=== PATIENT | female | born 1975 | race Caucasian/White ===

== ENCOUNTER 2019-07-17 19:19 | Emergency (ER) | payer MEDICAID ==
[~2019-07-17] VITALS: Ht 172.7 cm; Wt 63.5 kg
--- NOTE | 2019-07-17 19:21 | NUR ---
ED Nurse Note: Patient brought in by ambulance, RA 29 with complaints of taking unknown amounts of meclizine unintentionally. patient reports feeling dizzy.
[2019-07-17 19:22] VITALS: BP 130/91
[2019-07-17] MEDS ORDERED: Activated Charcoal 50gm/240ml Btl ORAL ONE (19:30)
--- NOTE | 2019-07-17 19:51 | NUR ---
ED Nurse Note: patient tolerated medication administration well. Will continue to monitor response from activated charcoal.
[2019-07-17 19:58] LABS: BASOPHILS % (AUTO) 1.4 % (0.0-2.0); EOSINOPHILS % (AUTO) 1.9 % (0.0-3.0); HEMATOCRIT 43.4 % (37.0-47.0); HEMOGLOBIN 13.3 G/DL (12.0-16.0); LYMPHOCYTES % (AUTO) 39.3 % (20.0-45.0); MEAN CORPUSCULAR VOLUME 97 FL (80-99); MONOCYTES % (AUTO) 5.1 % (1.0-10.0); NEUTROPHILS % (AUTO) 52.4 % (45.0-75.0); PLATELET COUNT 384 K/UL (150-450); RED BLOOD COUNT 4.49 M/UL (4.20-5.40); RED CELL DISTRIBUTION WIDTH 12.1 % (11.6-14.8); WHITE BLOOD COUNT 6.9 K/UL (4.8-10.8)
[2019-07-17 20:07] LABS: ANION GAP 14 mmol/L (5-15); BLOOD UREA NITROGEN 10 mg/dL (7-18); CALCIUM 8.4 MG/DL (8.5-10.1); CARBON DIOXIDE 23 MMOL/L (21-32); CHLORIDE 105 MMOL/L (98-107); CREATININE 0.9 MG/DL (0.55-1.30); POTASSIUM 3.5 MMOL/L (3.5-5.1); SODIUM 142 MMOL/L (136-145)
--- NOTE | 2019-07-17 20:20 | NUR ---
ED Nurse Note: Tanneralvin (father) # [phone]
[2019-07-17 20:27] LABS: ALANINE AMINOTRANSFERASE 31 U/L (12-78); ALBUMIN 3.7 G/DL (3.4-5.0); ALKALINE PHOSPHATASE 31 U/L (46-116); ASPARTATE AMINO TRANSFERASE 35 U/L (15-37); BILIRUBIN,TOTAL 0.3 MG/DL (0.2-1.0)
--- NOTE | 2019-07-17 20:35 | NUR ---
ED Nurse Note: Patietn able to ambulate to restroom with minimal assist. Patient provided urine specimen and it was taken down to lab. Will continue to monitor cardiac status and lab results.
[2019-07-17 20:53] LABS: APPEARANCE,URINE CLEAR; BILIRUBIN, URINE NEGATIVE (NEGATIVE); COLOR,URINE PALE YELLOW; GLUCOSE, URINE (UA) NEGATIVE (NEGATIVE); KETONES,URINE NEGATIVE (NEGATIVE); LEUKOCYTE ESTERASE ,URINE NEGATIVE (NEGATIVE); NITRITE,URINE NEGATIVE (NEGATIVE); PH,URINE 6 (4.5-8.0); PROTEIN,URINE NEGATIVE (NEGATIVE); UROBILINOGEN,URINE NORMAL MG/DL (0.0-1.0)
--- NOTE | 2019-07-17 22:12 | NUR ---
ED Nurse Note: Patient repositioned. Patient is resting comfortably with no s/s of acute distress. vital signs within normal range.
--- NOTE | 2019-07-17 22:29 | Emergency Room Report ---
History of Present Illness General Chief Complaint: Overdose Source: Patient Present Illness HPI 44-year-old female presents to ED for overdose. Brought in by EMS from home. States that she accidentally took meclizine. About 1 hour ago. Does not know how many pills she took. Was not trying to hurt herself. Medication was prescribed to her father but she also has vertigo. Denies SI or HI. Denies hearing voices. Admits to alcohol use. No other aggravating relieving factors. Denies any other associated symptoms Allergies: Coded Allergies: No Known Allergies (Unverified , 07/17/19) COVID-19 Screening Contact w/high risk pt: No Recent Travel to affected area: No Experienced COVID-19 symptoms?: No COVID-19 Testing performed MEDICAID PLAN COMPLIANCE DIRECTOR: No Patient History Past Medical History: psych hx Past Surgical History: none Pertinent Family History: none Social History: Reports: alcohol use; Denies: smoking, drug use Last Menstrual Period: UNK Now: No Immunizations: UTD Reviewed Nursing Documentation: PMH: Agreed; PSxH: Agreed Nursing Documentation-PMH Hx Hypertension: Yes Review of Systems All Other Systems: negative except mentioned in HPI Physical Exam Vital Signs Date Time Temp Pulse Resp B/P (MAP) Pulse Ox O2 Delivery O2 Flow Rate FiO2 07/17/19 19:16 97.9 78 12 151/96 (114) 98 Room Air Sp02 EP Interpretation: reviewed, normal General Appearance: no apparent distress, alert, GCS 15, non-toxic Head: normocephalic, atraumatic Eyes: bilateral eye normal inspection, bilateral eye PERRL ENT: hearing grossly normal, normal pharynx, no angioedema, normal voice Neck: full range of motion, supple/symm/no masses Respiratory: chest non-tender, lungs clear, normal breath sounds, speaking full sentences Cardiovascular #1: regular rate, rhythm, no edema Cardiovascular #2: 2+ carotid (R), 2+ carotid (L), 2+ radial (R), 2+ radial (L) , 2+ dorsalis pedis (R), 2+ dorsalis pedis (L) Gastrointestinal: normal bowel sounds, non tender, soft, non-distended, no guarding, no rebound Rectal: deferred Genitourinary: normal inspection, no CVA tenderness Musculoskeletal: back normal, normal range of motion, gait/station normal, non- tender Neurologic: alert, motor strength/tone normal, oriented x3, sensory intact, responsive, speech normal Psychiatric: judgement/insight normal, memory normal, mood/affect normal, no suicidal/homicidal ideation Reflexes: 3+ bicep (R), 3+ bicep (L), 3+ tricep (R), 3+ tricep (L), 3+ knee (R) , 3+ knee (L) Lymphatic: no adenopathy Medical Decision Making Diagnostic Impression: Primary Impression: Alcohol intoxication Qualified Codes: F10.929 - Alcohol use, unspecified with intoxication, unspecified Additional Impression: Drug overdose Qualified Codes: T50.901A - Poisoning by unspecified drugs, medicaments and biological substances, accidental (unintentional), initial encounter ER Course Hospital Course 44 yo F presents with dizziness, after taking meclizine. no SI/HI. Differential diagnoses include: Psychosis, EtOH, drug abuse Clinical course patient placed on stretcher. On engine monitor. After initial history and physical ordered labs, IV fluids, EKG, charcoal Labs reviewed-electrolytes okay, no leukocytosis, hemoglobin/hematocrit stable, +ETOH EKG - NSR no acute ischemci changes interpreted by me discussed case with poison control. Recommend to observe for QT prolongation and QRS widening. Recommended charcoal. Recommended observation. Patient observed on engine monitor. Vitals stable. [employer] at bedside to evaluate patient. They do not believe patient requires emergent psychiatric evaluation. I agree with their assessment. I believe this was an accidental ingestion secondary to alcohol use. Patient now alert oriented x3. Ambulating without difficulty. Observed for designated period of time. I believe patient can be safely discharged to home. Safe for discharge for close outpatient follow-up. I will provide referrals i. I feel this is a highly complex case requiring extensive working including EKG/Rhythm strip, Xray/CT/US, Blood/urine lab work, repeat exams while in ED, and administration of strong opiates/narcotics for pain control, admission to hospital or close patient follow up. Diagnosis - alcohol intoxication, drug overdose Stable and discharged to home. Followup with PMD. Return to ED if symptoms recur or worsen Labs Test 07/17/19 19:36 07/17/19 20:35 White Blood Count 6.9 K/UL (4.8-10.8) Red Blood Count 4.49 M/UL (4.20-5.40) Hemoglobin 13.3 G/DL (12.0-16.0) Hematocrit 43.4 % (37.0-47.0) Mean Corpuscular Volume 97 FL (80-99) Mean Corpuscular Hemoglobin 29.6 PG (27.0-31.0) Mean Corpuscular Hemoglobin Concent 30.6 G/DL (32.0-36.0) Red Cell Distribution Width 12.1 % (11.6-14.8) Platelet Count 384 K/UL (150-450) Mean Platelet Volume 7.1 FL (6.5-10.1) Neutrophils (%) (Auto) 52.4 % (45.0-75.0) Lymphocytes (%) (Auto) 39.3 % (20.0-45.0) Monocytes (%) (Auto) 5.1 % (1.0-10.0) Eosinophils (%) (Auto) 1.9 % (0.0-3.0) Basophils (%) (Auto) 1.4 % (0.0-2.0) Sodium Level 142 MMOL/L (136-145) Potassium Level 3.5 MMOL/L (3.5-5.1) Chloride Level 105 MMOL/L (98-107) Carbon Dioxide Level 23 MMOL/L (21-32) Anion Gap 14 mmol/L (5-15) Blood Urea Nitrogen 10 mg/dL (7-18) Creatinine 0.9 MG/DL (0.55-1.30) Estimat Glomerular Filtration Rate > 60 mL/min (>60) Glucose Level 121 MG/DL (74-106) Calcium Level 8.4 MG/DL (8.5-10.1) Total Bilirubin 0.3 MG/DL (0.2-1.0) Aspartate Amino Transf (AST/SGOT) 35 U/L (15-37) Alanine Aminotransferase (ALT/SGPT) 31 U/L (12-78) Alkaline Phosphatase 31 U/L (46-116) Total Protein 7.3 G/DL (6.4-8.2) Albumin 3.7 G/DL (3.4-5.0) Globulin 3.6 g/dL Albumin/Globulin Ratio 1.0 (1.0-2.7) Salicylates Level 3.8 ug/mL (2.8-20) Acetaminophen Level < 2 MCG/ML (10-30) Serum Alcohol 242 mg/dL Urine Color Pale yellow Urine Appearance Clear Urine pH 6 (4.5-8.0) Urine Specific [place] 1.010 (1.005-1.035) Urine Protein Negative (NEGATIVE) Urine Glucose (UA) Negative (NEGATIVE) Urine Ketones Negative (NEGATIVE) Urine Blood Negative (NEGATIVE) Urine Nitrite Negative (NEGATIVE) Urine Bilirubin Negative (NEGATIVE) Urine Urobilinogen Normal MG/DL (0.0-1.0) Urine Leukocyte Esterase Negative (NEGATIVE) Urine HCG, Qualitative Negative (NEGATIVE) Urine Opiates Screen Negative (NEGATIVE) Urine Barbiturates Screen Negative (NEGATIVE) Phencyclidine (PCP) Screen Negative (NEGATIVE) Urine Amphetamines Screen Negative (NEGATIVE) Urine Benzodiazepines Screen Negative (NEGATIVE) Urine Cocaine Screen Negative (NEGATIVE) Urine Marijuana (THC) Screen Negative (NEGATIVE) EKG Diagnostic Results Rate: normal Rhythm: NSR ST Segments: no acute changes ASA given to the pt in ED: No Rhythm Strip Diag. Results EP Interpretation: yes Rhythm: NSR, no PVC's, no ectopy Last Vital Signs Date Time Temp Pulse Resp B/P (MAP) Pulse Ox O2 Delivery O2 Flow Rate FiO2 07/17/19 19:22 78 12 Room Air 07/17/19 19:22 97.7 130/91 96 Status: improved Disposition: HOME, SELF-CARE Condition: Stable [facility] Patient Instructions: Basics of Medicine Management Chava Ruiz MD Jul 17, 2019 22:29
[2019-07-17 22:38] VITALS: BP 128/88
[2019-07-17 22:40] VITALS: BP 128/88
--- NOTE | 2019-07-17 22:40 | NUR ---
ER DISCHARGE NOTE: Patient is cleared to be discharged per ERMD, pt is aox4, on room air, with stable vital signs. pt was given dc instructions, pt was able to verbalize understanding, pt id band and iv site removed without complications. pt is able to ambulate with steady gait. pt took all belongings.
== END 2019-07-17 22:40 | disposition home or self-care (01) ==
LOC: EDBD 19:19 → EMR 20:18
DX: F10.129 Alcohol abuse with intoxication, unspecified (principal); T50.901A Poisoning by unspecified drugs, medicaments and biological substances, accidental (unintentional), initial encounter; I10 Essential (primary) hypertension; X58.XXXA Exposure to other specified factors, initial encounter; Y92.9 Unspecified place or not applicable
CPT/HCPCS: 36415; 80053; 80307; 81003; 81025; 85025; 93005; 96361; 96374; G0480; G0481; J2405; J7030; Z7502; 99284

== ENCOUNTER 2020-03-27 17:58 | Emergency (ER) | payer MEDICAID ==
[~2020-03-27] VITALS: Ht 167.6 cm; Wt 65.8 kg
[2020-03-27 18:21] VITALS: BP 128/89
--- NOTE | 2020-03-27 18:23 | Emergency Room Report ---
History of Present Illness General Source: Patient, EMS (Dong Watts MD) Present Illness HPI Patient brought by EMS. She ingested a handful of Klonopin. Paramedics counted that it could have been up to 15 tables - unknown dose. No reported vomiting. Patient states she had felt anxious "and didn't think they would be strong because they had ". She states she has had problems with depression and feels worthless at this time. She states she "just wanted to end it all". She had been drinking before taking the medicine. She took them "a while" before paramedics were called. Patient was seen here July of last year. At that time she presented with alcohol intoxication and an overdose of meclizine. At that time was assessed that the overdose was accidental due to the alcohol ingestion. She was on [address] [facility] and transferred to [facility] rehab facility in January. She tested negative for COVID 2 weeks ago. Denies exposure to COVID + contacts recently. Denies COVID symptoms. H/O migraines. Denies headache at this time. Last menses normal. H/O HTN. (Dong Watts MD) Allergies: Coded Allergies: SULFA (SULFONAMIDE ANTIBIOTICS) (Verified Allergy, Unknown, 03/27/20) COVID-19 Screening Contact w/high risk pt: No Recent Travel to affected area: No Experienced COVID-19 symptoms?: No (Dong Watts MD) Patient History Past Medical History: see triage record, old chart reviewed Social History: Reports: smoking, alcohol use Social History Narrative From home lives with parents and has daughter 50% of time Reviewed Nursing Documentation: PMH: Agreed; PSxH: Agreed (Dong Watts MD) Nursing Documentation-PMH Hx Hypertension: Yes (Dong Watts MD) Review of Systems All Other Systems: negative except mentioned in HPI (Dong Watts MD) Physical Exam Vital Signs Date Time Temp Pulse Resp B/P (MAP) Pulse Ox O2 Delivery O2 Flow Rate FiO2 03/27/20 18:00 97.5 86 17 162/88 (112) 99 Room Air 03/27/20 18:21 97 Sp02 EP Interpretation: reviewed, normal General Appearance: well appearing, no apparent distress, GCS 15, non-toxic, other Head: normocephalic Eyes: bilateral eye PERRL, bilateral eye EOMI, bilateral eye Scleral Injection ENT: other - Wearing a mask Neck: supple Respiratory: normal inspection, lungs clear Cardiovascular #1: regular rate, rhythm Cardiovascular #2: 2+ radial (R) Gastrointestinal: normal inspection, non-distended Musculoskeletal: back normal, normal range of motion Neurologic: oriented x3, speech normal, other - Sleepy Suicide Risk Assessment: Suicidal Ideation: Yes Had intent to initiate attempt: Yes Pt's plan for suicide attempt: Yes Has means to complete attempt: Yes Skin: no rash, warm/dry (Dong Watts MD) Medical Decision Making Diagnostic Impression: Primary Impression: Drug overdose Qualified Codes: T50.902A - Poisoning by unspecified drugs, medicaments and biological substances, intentional self-harm, initial encounter Additional Impressions: Suicide gesture Qualified Codes: X83.8XXA - Intentional self-harm by other specified means, initial encounter Headache Qualified Codes: R51.9 - Headache, unspecified Anxiety ER Course Patient presents with admitted overdose of benzodiazepine with alcohol. Differential includes polypharmacy overdose, alcohol intoxication, suicidal gesture amongst others. Due to timing of ingestion, charcoal and lavage not indicated. Evaluation with EKG and labs. Treatment with IV hydration. Patient placed on registered nurse cardiac telemetry. Repeat exams indicated. Due to several presentations for similar events and the quantity allegedly ingested, self- threat taken seriously. Patient is voluntary. Due to need for psychiatric evaluation, placed on medical hold. Poison control contacted. Suggested continued observation at least 4 hours and supportive care. Recommend against Romazicon. RN notes state patient denied suicide intent. EKG without injury. Labs remarkable for elevated blood alcohol (184). Patient mentation not deteriorating. Resting and not lethargic, easily roused. C/O headache - Reglan, Benadryl and toradol given. HASTINGS resolved. 2149 - c/o abdominal pain. Points just below belly button. Abd soft. Tylenol ordered. [address] Lindsay. Placed on Medical Hold. Laboratory Tests Test 03/27/20 18:04 03/27/20 19:44 03/27/20 22:01 White Blood Count 4.0 K/UL (4.8-10.8) L Red Blood Count 4.15 M/UL (4.20-5.40) L Hemoglobin 12.2 G/DL (12.0-16.0) Hematocrit 38.2 % (37.0-47.0) Mean Corpuscular Volume 92 FL (80-99) Mean Corpuscular Hemoglobin 29.5 PG (27.0-31.0) Mean Corpuscular Hemoglobin Concent 32.1 G/DL (32.0-36.0) Red Cell Distribution Width 12.9 % (11.6-14.8) Platelet Count 331 K/UL (150-450) Mean Platelet Volume 5.9 FL (6.5-10.1) L Neutrophils (%) (Auto) 39.7 % (45.0-75.0) L Lymphocytes (%) (Auto) 49.1 % (20.0-45.0) H Monocytes (%) (Auto) 7.6 % (1.0-10.0) Eosinophils (%) (Auto) 1.9 % (0.0-3.0) Basophils (%) (Auto) 1.7 % (0.0-2.0) Sodium Level 144 MMOL/L (136-145) Potassium Level 3.7 MMOL/L (3.5-5.1) Chloride Level 106 MMOL/L (98-107) Carbon Dioxide Level 26 MMOL/L (21-32) Anion Gap 12 mmol/L (5-15) Blood Urea Nitrogen 13 mg/dL (7-18) Creatinine 0.8 MG/DL (0.55-1.30) Estimated Glomerular Filtration Rate > 60 mL/min (>60) Glucose Level 103 MG/DL (74-106) Calcium Level 8.3 MG/DL (8.5-10.1) L Total Bilirubin 0.3 MG/DL (0.2-1.0) Aspartate Amino Transferase (AST) 22 U/L (15-37) Alanine Aminotransferase (ALT) 17 U/L (12-78) Alkaline Phosphatase 46 U/L (46-116) Total Creatine Kinase 61 U/L (26-308) Total Protein 7.0 G/DL (6.4-8.2) Albumin 3.4 G/DL (3.4-5.0) Globulin 3.6 g/dL Albumin/Globulin Ratio 0.9 (1.0-2.7) L Salicylates Level 2.7 ug/mL (2.8-20) L Acetaminophen Level < 2 MCG/ML (10-30) L Serum Alcohol 184 mg/dL 27 mg/dL Urine HCG, Qualitative Negative (NEGATIVE) Urine Opiates Screen Negative (NEGATIVE) Urine Barbiturates Screen Negative (NEGATIVE) Phencyclidine (PCP) Screen Negative (NEGATIVE) Urine Amphetamines Screen Negative (NEGATIVE) Urine Benzodiazepines Screen Negative (NEGATIVE) Urine Cocaine Screen Negative (NEGATIVE) Urine Marijuana (THC) Screen Negative (NEGATIVE) (Dong Watts MD) ER Course Assumed care of the patient from the previous provider at approximately 2300. Please refer to initial note for full history and physical exam. Briefly, 45-year-old female presented to the ER after taking multiple Klonopin. Placed on medical hold by previous physician. Awaiting psychiatric evaluation in the morning. (Noah Lindsay MD) ER Course Patient endorsed to me by previous physician. Patient was seen by psychiatrist. Patient does not appear to be in any acute danger to herself at this time. Patient was noted to have adequate mental status. She denies any suicidal thoughts when discussing with psychiatrist. Patient will be discharged home. She is to follow-up with her psychiatrist.Patient was picked up by her father. This medical record is generated with [employer] enrober software. There may be some enrober discrepancies related to use of this software (Jonathan Kidd MD) EKG Diagnostic Results Rate: normal Rhythm: NSR ST Segments: no acute changes (Dong Watts MD) Rhythm Strip Diag. Results EP Interpretation: yes Rhythm: NSR, no PVC's, no ectopy (Dong Watts MD) Last Vital Signs Date Time Temp Pulse Resp B/P (MAP) Pulse Ox O2 Delivery O2 Flow Rate FiO2 03/27/20 22:05 97.8 82 19 123/85 100 Room Air 97 Status: improved (Dong Watts MD) Status: improved (Jonathan Kidd MD) Disposition: HOME, SELF-CARE Condition: Stable Dong Watts MD Mar 27, 2020 18:22 Noah Lindsay MD Mar 28, 2020 05:18 Jonathan Kidd MD Mar 28, 2020 12:12
--- NOTE | 2020-03-27 18:28 | NUR ---
ED Nurse Note: pt arrived from home. father called 911. pt took 15-20 clonazepam. initially saying she did not try and hurt herself, just feeling anxious and trying to feel better. pt states high stress levels at home with family dynamic issues. pt states etoh abuse, currently drinking, unable to remember last time she was sober for 2 weeks. pt states she drinks every day. pt was seeing therapist, has not seen in the past few months. pt then becoming tearful and admitting "I feel hopeless & that I am a failure to god. I know I have potential but I feel like I am wasting it. I just didnt see and end." pt A&Ox4, coopertaive but tearful. pt oriented, slight slurring of words. pt states whole family had covid, she did not get it, had 4 negative tests, last one 2 weeks ago. no symptoms per pt pt hx: migraine, HTN, OCD, alcoholism per pt- she was placed on 5150 at [facility] and transferred to rehab center for depression/anxiety and alcohol withdrawal.
[2020-03-27 18:29] LABS: BASOPHILS % (AUTO) 1.7 % (0.0-2.0); EOSINOPHILS % (AUTO) 1.9 % (0.0-3.0); HEMATOCRIT 38.2 % (37.0-47.0); HEMOGLOBIN 12.2 G/DL (12.0-16.0); LYMPHOCYTES % (AUTO) 49.1 % (20.0-45.0); MEAN CORPUSCULAR VOLUME 92 FL (80-99); MONOCYTES % (AUTO) 7.6 % (1.0-10.0); NEUTROPHILS % (AUTO) 39.7 % (45.0-75.0); PLATELET COUNT 331 K/UL (150-450); RED BLOOD COUNT 4.15 M/UL (4.20-5.40); RED CELL DISTRIBUTION WIDTH 12.9 % (11.6-14.8)
[2020-03-27 18:34] LABS: ANION GAP 12 mmol/L (5-15); BLOOD UREA NITROGEN 13 mg/dL (7-18); CALCIUM 8.3 MG/DL (8.5-10.1); CARBON DIOXIDE 26 MMOL/L (21-32); CHLORIDE 106 MMOL/L (98-107); CREATININE 0.8 MG/DL (0.55-1.30); POTASSIUM 3.7 MMOL/L (3.5-5.1); SODIUM 144 MMOL/L (136-145)
[2020-03-27 18:39] LABS: ALANINE AMINOTRANSFERASE 17 U/L (12-78); ALBUMIN 3.4 G/DL (3.4-5.0); ALBUMIN/GLOBULIN RATIO 0.9 (1.0-2.7); ALKALINE PHOSPHATASE 46 U/L (46-116); ASPARTATE AMINO TRANSFERASE 22 U/L (15-37); BILIRUBIN,TOTAL 0.3 MG/DL (0.2-1.0); CREATINE KINASE 61 U/L (26-308)
--- NOTE | 2020-03-27 18:51 | NUR ---
ED Nurse Note: called poision control at 1850. recommendations: watch for respiratory depression/TOOLS DEVELOPER depression due to combination with alcohol. observe for 4 hours in ER. order CBC, CMP, etoh/acetaminophen/salicylate levels. pt is A&Ox4 on continuous monitor, likely will be able to be cleared after 4 hours of observation. MD Watts notified. recommended labs are ordered. pt on continuous cardiac/O2 monitor.
--- NOTE | 2020-03-27 18:56 | NUR ---
ED Nurse Note: called poision control at 1850. Spoke with Tracy. recommendations: watch for respiratory depression/PIECER depression due to combination with alcohol. observe for 4 hours in ER. order CBC, CMP, etoh/acetaminophen/salicylate levels. pt is A&Ox4 on continuous monitor, likely will be able to be cleared after 4 hours of observation. MD Watts notified. recommended labs are ordered. pt on continuous cardiac/O2 monitor.
[2020-03-27] MEDS ORDERED: Ketorolac 30mg Inj IV ONE (19:00)
[2020-03-27] MEDS ORDERED: Metoclopramide 10mg/2ml Inj IVP ONE (19:00)
[2020-03-27] MEDS ORDERED: DiphenhydrAMINE 50mg/ml Inj IVP ONE (19:00)
--- NOTE | 2020-03-27 19:09 | NUR ---
ED Nurse Note: Recived care from Reynaldo ART. Pt is resting comfortably breathing is even and unlabored, vtals are stable on RA as docuemented. Monitor is on per tele monitor pt SR. Pt is axox4, co of head pain per pt it feels like a migraine. IV meds given. Clarified diphenhydramine order, per ER MD ok to give.
[2020-03-27 19:10] VITALS: BP 118/83
--- NOTE | 2020-03-27 19:52 | NUR ---
ED Nurse Note: Urine sent to lab
--- NOTE | 2020-03-27 20:46 | NUR ---
ED Nurse Note: Spoke with father [facility] [phone]
[2020-03-27 21:05] VITALS: BP 123/69
--- NOTE | 2020-03-27 22:00 | NUR ---
ED Nurse Note: Pt is co abd pain, ER assesed pt at [facility]. Pt states that it is LLQ and sharp. LBM 2 days ago.
[2020-03-27 22:05] VITALS: BP 123/85
--- NOTE | 2020-03-27 23:00 | NUR ---
[facility] called back, all updated information given, they are closing the case.
--- NOTE | 2020-03-27 23:30 | NUR ---
ED Nurse Note: Pt has a large episode of fecal incontinence. States that she no longer has abdominal pain.
[2020-03-28 01:45] VITALS: BP 113/72
--- NOTE | 2020-03-28 01:46 | NUR ---
ED Nurse Note: Pt is resting comfortably, eyes are closed, breathing is even and unlabored, she is easily stimulated by voice and her vitals are stable on RA as documented.
[2020-03-28 05:10] VITALS: BP 114/75
--- NOTE | 2020-03-28 05:11 | NUR ---
ED Nurse Note:ED Nurse Note: Pt is resting comfortably, eyes are closed, breathing is even and unlabored, she is easily stimulated by voice and her vitals are stable on RA as documented.
--- NOTE | 2020-03-28 07:18 | NUR ---
HAND-OFF: Report given to Reynaldo ART. PT is resting eyes closed, vitals signs stable on RA as documented, breathing is even and unlabored.
[2020-03-28 07:19] VITALS: BP 122/69
[2020-03-28 08:50] VITALS: BP 119/74
--- NOTE | 2020-03-28 10:02 | NUR ---
ED Nurse Note: 0745: spoke with pt father. updated on plan for evaluation today. pt resting in bed. vitals stable. will continue to monitor. 1000: pt given food, fluids. pt calm & cooperative. will continue to monitor.
--- NOTE | 2020-03-28 12:27 | Cardiology Report ---
APPROVED REPORT EKG Measurement Heart [id number] <Conclusion> Normal sinus rhythm Normal ECG
--- NOTE | 2020-03-28 12:37 | NUR ---
ED Nurse Note: pt spoke to physician extender. pt cleared for discharge. cleared pt for followup care outside. Addendum: 03/28/20 at 1349 by VESNAKINS ED Nurse Note: pt spoke to psych physician extender. pt cleared for discharge. after speaking with psych physician extender, MD Kidd cleared pt for followup care outside ER. Pt & father given resources for followup care and external resources. pt A&Ox4, ambulatory, stable. father verbalizes to continue care for pt with psychiatrist. pt verbalizes understanding to continue care with psychiatrist, take medications as prescribed, and given resources for external support.
[2020-03-28 12:54] VITALS: BP 127/90
== END 2020-03-28 12:56 | disposition home or self-care (01) ==
LOC: EDBD 17:58 → EMR 18:49
DX: T42.4X2A Poisoning by benzodiazepines, intentional self-harm, initial encounter (principal); F41.9 Anxiety disorder, unspecified; R51.9 Headache, unspecified; I10 Essential (primary) hypertension; F17.200 Nicotine dependence, unspecified, uncomplicated; F10.10 Alcohol abuse, uncomplicated; Y90.6 Blood alcohol level of 120-199 mg/100 ml; Y92.019 Unspecified place in single-family (private) house as the place of occurrence of the external cause; Z88.2 Allergy status to sulfonamides
CPT/HCPCS: 36415; 80053; 80307; 81025; 82550; 85025; 93005; 96361; 96374; 96375; G0480; G0481; J1200; J1885; J2765; Z7502; 99284

== ENCOUNTER 2020-03-29 07:55 | Emergency (ER) | payer MEDICAID ==
[~2020-03-29] VITALS: Ht 167.6 cm; Wt 72.6 kg
--- NOTE | 2020-03-29 08:27 | Emergency Room Report ---
History of Present Illness General Chief Complaint: Substance Abuse Source: Patient Present Illness HPI Patient is a 45-year-old female presents for possible alcohol withdrawal. Patient had been seen at this emergency department yesterday and had been seen by psychiatry. She had recently overdosed on benzodiazepines. Reports having alcohol withdrawal. States she drank last night. Additionally states that she took 2 mg of Klonopin. States she has additional doses at home. Reports having recent fall at home and states she hit a dresser with the side of her face. Injury occurred approximately 5:00 in the morning. Denies any loss of consciousness. Reports having history of chronic headaches as well as hypertension. States she takes propranolol as well as Klonopin. Allergies: Coded Allergies: SULFA (SULFONAMIDE ANTIBIOTICS) (Verified Allergy, Unknown, 03/27/20) COVID-19 Screening Contact w/high risk pt: No Recent Travel to affected area: No Experienced COVID-19 symptoms?: No COVID-19 Testing performed MANAGER MACHINE: No Patient History Past Medical History: see triage record Reviewed Nursing Documentation: PMH: Agreed; PSxH: Agreed Nursing Documentation-PMH Past Medical History: No History, Except For Hx Hypertension: Yes Review of Systems All Other Systems: negative except mentioned in HPI Physical Exam Vital Signs Date Time Temp Pulse Resp B/P (MAP) Pulse Ox O2 Delivery O2 Flow Rate FiO2 03/29/20 08:11 97.5 82 18 142/96 (111) 96 Room Air Sp02 EP Interpretation: reviewed, normal General Appearance: normal inspection, well appearing, no apparent distress, alert, GCS 15 Head: atraumatic ENT: normal ENT inspection, hearing grossly normal, normal voice Neck: normal inspection, full range of motion, supple, no bony tend Respiratory: normal inspection, lungs clear, normal breath sounds, no respiratory distress, no retraction, no wheezing Cardiovascular #1: regular rate, rhythm, no edema Gastrointestinal: normal inspection, normal bowel sounds, non tender, soft, no guarding, no hernia Genitourinary: no CVA tenderness Musculoskeletal: normal inspection, back normal, normal range of motion Neurologic: alert, motor strength/tone normal, professional architect III-XII nml as tested, oriented x3, responsive, speech normal, normal inspection Psychiatric: normal inspection, judgement/insight normal, mood/affect normal Skin: no rash Medical Decision Making Diagnostic Impression: Primary Impression: Anxiety Additional Impression: Facial contusion ER Course Patient presents for reported alcohol withdrawal. Differential diagnosis include was not limited to substance abuse, alcohol withdrawal, drug-seeking behavior among others. Imaging studies were ordered due to patient's recent trauma. Patient does not appear to have any evidence of alcohol withdrawal does not appear to have any evidence of tremulousness. Her heart rate is in the 70s. Normal mental status. Blood pressure is adequate controlled. Patient shows no signs of hyperstimulation or tremulousness. Patient additionally has dosages of benzodiazepines available to her at home.CT imaging was ordered and patient was advised of currently time for CT imaging. Patient was advised the radiology department would be taking her down shortly for CT. She stated she only wanted to wait in the hospital. Patient does not appear to be suffering from any altered mental status. She appears competent to refuse. Patient states she wanted to leave and left hospital on her own. This medical record is generated with [employer] wellness consultant software. There may be some wellness consultant discrepancies related to use of this software Last Vital Signs Date Time Temp Pulse Resp B/P (MAP) Pulse Ox O2 Delivery O2 Flow Rate FiO2 03/29/20 08:11 97.5 82 18 142/96 (111) 96 Room Air Status: unchanged Disposition: AGAINST MEDICAL ADVICE Condition: Stable Jonathan Kidd MD Mar 29, 2020 08:27
[2020-03-29 08:29] VITALS: BP 131/94
[2020-03-29] MEDS ORDERED: Acetaminophen 500mg (ES) tab ORAL ONE (08:30)
--- NOTE | 2020-03-29 08:57 | NUR ---
ED Nurse Note: pt arrived to ER for eval of R chin after falling this morning. pt denies losing conciousness, pt states she remembers everything. pt tearful, MD at bedside. pt given resources for external support for alcohol and drug abuse. pt eloped, stating she did not want to wait for CT scan, stating "it was taking too long". pt A&Ox4, ambulatory, stable, VSS. MD aware of elopement. pt educated regarding benefit of staying for medical evaluation. pt refusing to stay, stating she is going to leave and go home with her family. no IV present.
[2020-03-29 09:00] VITALS: BP 131/94
== END 2020-03-29 09:00 | disposition left against medical advice (07) ==
LOC: EMR 08:29
DX: F41.9 Anxiety disorder, unspecified (principal); S00.83XA Contusion of other part of head, initial encounter; I10 Essential (primary) hypertension; Z88.2 Allergy status to sulfonamides; F10.239 Alcohol dependence with withdrawal, unspecified
CPT/HCPCS: 99282

== ENCOUNTER 2020-03-29 14:37 | Emergency (ER) | payer MEDICAID ==
[~2020-03-29] VITALS: Ht 162.6 cm; Wt 68.0 kg
--- NOTE | 2020-03-29 14:40 | NUR ---
ED Nurse Note: pt called the ambulance for the 2nd time today for a fall. she pointed to her 2nd toe on the left foot next to greater toe. no visual injury noted. pt appears to be slightly intoxicated.
[2020-03-29 14:48] VITALS: BP 132/78
--- NOTE | 2020-03-29 15:26 | NUR ---
ED Nurse Note: pt keeps coming out of her room asking how much longer is it going to be for results. has asked many times for food. informed pt no food until results come back.
--- NOTE | 2020-03-29 15:30 | Diagnostic Imaging Report ---
History: FALL Exam: CT HEAD Without Contrast Technique more: CTDI is 53.4 mGy and DLP is 965.4 mGy-cm. Technique more: One or more of the following dose reduction techniques were used: automated exposure control, adjustment of the mA and/or kV according to patient size, use of iterative reconstruction technique. Comparison: None available FINDINGS: No intracranial hemorrhage, mass-effect or calvarial fracture. Ventricles are within limits and midline. Convexity volume loss. IMPRESSION: No intracranial hemorrhage, mass-effect or calvarial fracture.
--- NOTE | 2020-03-29 15:35 | Diagnostic Imaging Report ---
History: FALL Exam: CT FACIAL Without Contrast Technique more: CTDI is 15.3 mGy and DLP is 338.4 mGy-cm. Technique more: One or more of the following dose reduction techniques were used: automated exposure control, adjustment of the mA and/or kV according to patient size, use of iterative reconstruction technique. Comparison: FINDINGS: No acute fracture. The globes appear intact without retrobulbar stranding. The paranasal sinuses and mastoids are clear. TMJs appear normally located. Right facial soft tissue swelling. [place] artifact from dental amalgam. Periapical lucency associated with the right maxillary lateral incisor, left mandibular incisors and the left mandibular canine. IMPRESSION: No acute fracture. Right facial soft tissue swelling.
--- NOTE | 2020-03-29 15:47 | Diagnostic Imaging Report ---
History: PAIN Exam: XR RIGHT SHOULDER 3 views Comparison: FINDINGS: No acute fracture or dislocation. The joint spaces appear within limits. The visualized right lung appears clear. IMPRESSION: No acute fracture or dislocation.
--- NOTE | 2020-03-29 15:49 | Diagnostic Imaging Report ---
History: PAIN Exam: XR RIGHT FOREARM 2 views Comparison: FINDINGS: No fracture. IMPRESSION: No fracture.
--- NOTE | 2020-03-29 15:50 | NUR ---
ED Nurse Note: pt using the phone and yelling at her father. pt asked to go outside to get some fresh air. pt went outside.
[2020-03-29 15:57] VITALS: BP 126/72
--- NOTE | 2020-03-29 15:58 | NUR ---
ER DISCHARGE NOTE: Patient is cleared to be discharged per ERMD, pt is aox4, on room air, with stable vital signs. pt was given dc and prescription instructions, pt was able to verbalize understanding, pt id band removed. pt is able to ambulate with steady gait. pt took all belongings. Pt given substance abuse education.
--- NOTE | 2020-03-29 17:13 | Emergency Room Report ---
History of Present Illness General Chief Complaint: Multiple Trauma/Fall Source: Medical Record Present Illness HPI 45-year-old female presents status post fall. Brought in by EMS from home. States that she fell today and hit her head and injured her right arm. Pain is dull, 5 out of 10, nonradiating. Was seen earlier today for this but did not wait for her CTs and left. Was seen here 2 days ago for alcohol intoxication. Denies SI or HI. No other aggravating relieving factors. Denies any other associated symptoms Allergies: Coded Allergies: SULFA (SULFONAMIDE ANTIBIOTICS) (Verified Allergy, Unknown, 03/27/20) Uncoded Allergies: SULFA (Allergy, Unknown, 03/29/20) COVID-19 Screening Contact w/high risk pt: No Recent Travel to affected area: No Experienced COVID-19 symptoms?: No COVID-19 Testing performed BOILER PLANT OPERATOR: No Patient History Past Medical History: psych hx Past Surgical History: none Pertinent Family History: none Social History: Reports: alcohol use; Denies: smoking, drug use Now: No Immunizations: UTD Reviewed Nursing Documentation: PMH: Agreed; PSxH: Agreed Nursing Documentation-PMH Past Medical History: No History, Except For Hx Hypertension: Yes Review of Systems All Other Systems: negative except mentioned in HPI Physical Exam Vital Signs Date Time Temp Pulse Resp B/P (MAP) Pulse Ox O2 Delivery O2 Flow Rate FiO2 03/29/20 14:34 98.6 80 16 132/78 (96) 100 03/29/20 15:57 Room Air Sp02 EP Interpretation: reviewed, normal General Appearance: no apparent distress, alert, GCS 15, non-toxic Head: normocephalic, atraumatic Eyes: bilateral eye normal inspection, bilateral eye PERRL ENT: hearing grossly normal, normal pharynx, no angioedema, normal voice Neck: full range of motion, supple/symm/no masses Respiratory: chest non-tender, lungs clear, normal breath sounds, speaking full sentences Cardiovascular #1: regular rate, rhythm, no edema Cardiovascular #2: 2+ carotid (R), 2+ carotid (L), 2+ radial (R), 2+ radial (L), 2+ dorsalis pedis (R), 2+ dorsalis pedis (L) Gastrointestinal: normal bowel sounds, non tender, soft, non-distended, no guarding, no rebound Rectal: deferred Genitourinary: normal inspection, no CVA tenderness Musculoskeletal: back normal, normal range of motion, gait/station normal, tender - RUE Neurologic: alert, motor strength/tone normal, oriented x3, sensory intact, responsive, speech normal Psychiatric: judgement/insight normal, memory normal, mood/affect normal, no suicidal/homicidal ideation, anxious Reflexes: 3+ bicep (R), 3+ bicep (L), 3+ tricep (R), 3+ tricep (L), 3+ knee (R), 3+ knee (L) Skin: no rash Lymphatic: no adenopathy Medical Decision Making Diagnostic Impression: Primary Impression: Multiple injuries due to trauma ER Course Hospital Course 45-year-old female presents with head pain facial pain and right arm pain status post fall Differential diagnoses include: Fracture, dislocation, sprain, contusion Clinical course Patient placed on stretcher. After initial history and physical, I ordered CT head, CT C-spine and x-rays of right arm CT head and CT C-spine no acute process X-rays of right upper extremity show no fracture or dislocation ED course patient incredibly disruptive demanding to be receiving her results immediately. Rude to nursing and staff. Yelling. I asked multiple times for this patient to keep her voice down. Once results were completed patient received her discharge papers Diagnosis -multiple injuries due to trauma Stable and discharged to home. apply ice, keep elevated. weight bear as tolerated. Followup with PMD. Return to ED if symptoms recur or worsen Other X-Ray Diagnostic Results Other X-Ray Diagnostic Results #1: X-Ray ordered: Right shoulder # of Views/Limited Vs Complete: 3 View Indication: Pain EP Interpretation: Yes Interpretation: no dislocation, no soft tissue swelling, no fractures Impression: No acute disease Electronically Signed by: Electronically signed by Chava Ruiz MD Other X-Ray Diagnostic Results #2: X-Ray ordered: Right forearm # of Views/Limited Vs Complete: 2 View Indication: Pain EP Interpretation: Yes Interpretation: no dislocation, no soft tissue swelling, no fractures Impression: No acute disease Electronically Signed by: Electronically signed by Chava Ruiz MD CT/MRI/US Diagnostic Results CT/MRI/US Diagnostic Results #1: Imaging Test Ordered: CT Head Impression Procedure: CT Head no Contrast History: FALL Exam: CT HEAD Without Contrast Technique more: CTDI is 53.4 mGy and DLP is 965.4 mGy-cm. Technique more: One or more of the following dose reduction techniques were used: automated exposure control, adjustment of the mA and/or kV according to patient size, use of iterative reconstruction technique. Comparison: None available FINDINGS: No intracranial hemorrhage, mass-effect or calvarial fracture. Ventricles are within limits and midline. Convexity volume loss. IMPRESSION: No intracranial hemorrhage, mass-effect or calvarial fracture. CT/MRI/US Diagnostic Results #2: Imaging Test Ordered: CT Facial Bones Impression Procedure: CT Facial Bones no Contrast History: FALL Exam: CT FACIAL Without Contrast Technique more: CTDI is 15.3 mGy and DLP is 338.4 mGy-cm. Technique more: One or more of the following dose reduction techniques were used: automated exposure control, adjustment of the mA and/or kV according to patient size, use of iterative reconstruction technique. Comparison: FINDINGS: No acute fracture. The globes appear intact without retrobulbar stranding. The paranasal sinuses and mastoids are clear. TMJs appear normally located. Right facial soft tissue swelling. [place] artifact from dental amalgam. Periapical lucency associated with the right maxillary lateral incisor, left mandibular incisors and the left mandibular canine. IMPRESSION: No acute fracture. Right facial soft tissue swelling. Last Vital Signs Date Time Temp Pulse Resp B/P (MAP) Pulse Ox O2 Delivery O2 Flow Rate FiO2 03/29/20 15:57 98.6 76 19 126/72 98 Room Air Status: improved Disposition: HOME, SELF-CARE Condition: Stable Referrals: [facility]ERR[facility] (PCP) Patient Instructions: Head Injury, Adult, [id number] Chava Ruiz MD Mar 29, 2020 17:13
== END 2020-03-29 15:59 | disposition home or self-care (01) ==
LOC: EDBD 14:37 → EMR 15:24
DX: R51.9 Headache, unspecified (principal); M79.601 Pain in right arm; I10 Essential (primary) hypertension; Z88.2 Allergy status to sulfonamides; W19.XXXA Unspecified fall, initial encounter; Y92.9 Unspecified place or not applicable
CPT/HCPCS: 70450; 70486; 73030; 73090; Z7502; 99284